=== PATIENT | male | born 1945 | race Caucasian/White ===

== ENCOUNTER 2021-01-12 19:02 | Inpatient (IN) | payer MEDICARE, BC ==
[~2021-01-12] VITALS: Ht 170.2 cm; Wt 69.4 kg
--- NOTE | 2021-01-12 19:32 | NUR ---
Called [facility] for safety precautions, patient has multiple attempts to get out of bed, bed placed in loest position, side rails up. Security arrived 1931, called zumbrota petra for 1:1.
--- NOTE | 2021-01-12 19:40 | NUR ---
steam powerplant supervisor made aware of patient condition, informed that no sitter is available at this time and security will be leaving in approx 30 minutes. Bed placed in low position, s/r up x2, call light within reach. Orientated patient of environment
--- NOTE | 2021-01-12 20:20 | NUR ---
Security at bedside, patient is noted to be calmer, listening to directions, continous re-education to not get out of bed without assistance.
[2021-01-12 20:41] LABS: BASOPHILS % (AUTO) 1.3 % (0.0-2.0); EOSINOPHILS # (AUTO) 0.1 K/uL (0.0-0.7); EOSINOPHILS % (AUTO) 2.1 % (0.0-7.0); HEMATOCRIT 42.9 % (36.7-47.1); HEMOGLOBIN 14.5 g/dL (12.5-16.3); LYMPHOCYTES # (AUTO) 1.5 K/uL (20.0-40.0); LYMPHOCYTES % (AUTO) 46.1 % (20.5-51.5); MEAN CORPUSCULAR HEMOGLOBIN 33.8 uug (23.8-33.4); MEAN CORPUSCULAR HGB CONC 34 g/dL (32.5-36.3); MEAN CORPUSCULAR VOLUME 100.1 fL (73.0-96.2); MONOCYTES # (AUTO) 0.3 K/uL (2.0-10.0); MONOCYTES % (AUTO) 8.9 % (0.0-11.0); NEUTROPHILS # (AUTO) 1.4 K/uL (1.8-8.9); NEUTROPHILS % (AUTO) 41.6 % (38.5-71.5); PLATELET COUNT (AUTO) 182 K/uL (152-348); RED BLOOD CELL COUNT(AUTO) 4.28 MIL/uL (4.06-5.63); WHITE BLOOD COUNT (AUTO) 3.3 K/uL (3.6-10.2)
[2021-01-12 20:44] LABS: POTASSIUM 4.4 mmol/L (3.5-5.1)
[2021-01-12] MEDS ORDERED: THIAMINE HCL 100 MG TABLET PO ONE (20:45)
[2021-01-12 20:50] LABS: BILIRUBIN,DIRECT 0.1 mg/dL (0.0-0.2); BILIRUBIN,TOTAL 0.2 mg/dL (0.2-1.0); TOTAL PROTEIN, SERUM 6.4 g/dL (6.4-8.2)
[2021-01-12] MEDS ORDERED: CYANOCOBALAMIN 1000 MCG/ML VIAL IM ONE (21:45)
[2021-01-12] MEDS ORDERED: CYANOCOBALAMIN 1000 MCG/ML VIAL ONE (22:14)
[2021-01-12] MEDS ORDERED: THIAMINE HCL 100 MG TABLET ONE (22:14)
--- NOTE | 2021-01-13 00:48 | NUR ---
Patient is resting comfortably in bed with eyes closed, bed in lowest position. All needs are met and attended at this time.
--- NOTE | 2021-01-13 01:11 | NUR ---
[phone], left message to call back.
--- NOTE | 2021-01-13 01:33 | NUR ---
2nd attempt to call [place] supervisor publications. no answer
--- NOTE | 2021-01-13 01:45 | NUR ---
Zakiya mendoza in [facility] - 01/13/21 at 0225 by [facility] Return[address] from [place], stable condition, following directions. Bed placed on lowest position.
--- NOTE | 2021-01-13 01:48 | NUR ---
Patient taken to CT.
--- NOTE | 2021-01-13 01:55 | NUR ---
Returned from CT, stable condition, following directions. Bed placed on lowest position.
--- NOTE | 2021-01-13 01:57 | NUR ---
Called Josy from crisis clinicial, left message to call back.
--- NOTE | 2021-01-13 02:19 | NUR ---
2nd attempt to contact Sarah from crisis team. Unable to leave voicemail
--- NOTE | 2021-01-13 02:49 | NUR ---
Third attempt to louise Sarah from crisis clinical, left message
--- NOTE | 2021-01-13 03:14 | NUR ---
Spoke with Sarah from access clinician, ETA is [phone].
--- NOTE | 2021-01-13 03:58 | NUR ---
Patient is resting comfortably in bed with eyes closed, bed in lowest position.
--- NOTE | 2021-01-13 04:30 | NUR ---
Follow up call made for reaming machine operator for plastic Sarah, unable to leave voicemail.
--- NOTE | 2021-01-13 05:03 | NUR ---
Spoke with Sarah from crisis team for update. was informed that she "will be there linda"
--- NOTE | 2021-01-13 05:45 | NUR ---
Sarah at bedside to eval. pt.
--- NOTE | 2021-01-13 06:50 | NUR ---
Patient eval. by Sarah director video, pt placed on 5150 hold for danger to self and gravely dissabled. All belongings taken and placed in a bag, gown provided. Safety precautions placed, provided safe environment provided.
--- NOTE | 2021-01-13 07:10 | NUR ---
Pt resting in bed, W/ both eyes closed, NAD noted.
[2021-01-13 07:50] VITALS: BP 162/99
--- NOTE | 2021-01-13 07:50 | NUR ---
Gps/Library Aide- Patient received from ER via wheel chair, in no signs of any distress, appeared anxious, oriented x 3. Report obtained from Melecio Mckeon .Patient foods/juice , refused claimed he does not eat breakfast. Hesitancy answering questions asked. 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 He admits to drinking , but denies to drinking too much, claimed he drinks wine when there's visitors . Patient verbalized somewhat depressed, but no plan to hurt himself. Poor memory, he does not know the year, and the day, knows the month. Oriented to unit settings. Routine admission.
[2021-01-13] MEDS ORDERED: TEMAZEPAM 7.5 MG CAPSULE PO PRN ×2 (09:30→15:00)
[2021-01-13] MEDS ORDERED: ACETAMINOPHEN 325 MG TABLET PO PRN (09:30)
[2021-01-13] MEDS ORDERED: MAGNESIUM HYDROXIDE 30 ML LIQUID UDC PO PRN (09:30)
[2021-01-13] MEDS ORDERED: LORAZEPAM 0.5 MG TABLET PO PRN (09:30)
[2021-01-13] MEDS ORDERED: MAG HYDROX/AL HYDROX/SIMETH 30 ML LIQUID UDC PO PRN (09:30)
--- NOTE | 2021-01-13 09:43 | NUR ---
Firearms Report: Sieve Grader Tender completed and submitted a DOJ firearms report for 5150 danger to self and grave disability certifications. A copy of report has been placed in patient chart.
--- NOTE | 2021-01-13 10:03 | NUR ---
EVELINE Initial Discharge Plan: Patient resides [place] [address] [place] [address] ([phone]). Patient's daughter, Ciara ([phone]) is involved in the patient's care. Patient would like to return home upon discharge. EVELINE will continue to work with patient, family, and MD to ensure a safe and proper discharge plan.
--- NOTE | 2021-01-13 10:04 | NUR ---
Brief Substance Abuse Intervention: Patient was provided with a brief substance abuse intervention for alcohol abuse and referred to the following substance abuse programs: [facility] Substance Abuse Self-helpline ([phone]); [facility] [address] [place] [address] ([phone]); [facility] [address] [facility] [address] ([phone]); [facility] ([phone]); [facility] ([phone]); [facility] ([phone]); [facility] ([phone]).
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
[2021-01-13] MEDS: LORAZEPAM 0.5 MG TABLET PO PRN ×2 (13:15→17:43)
[2021-01-13] MEDS ORDERED: ALLO300T2 PO (13:27)
[2021-01-13] MEDS ORDERED: OLME20TA13 PO (13:34)
[2021-01-13] MEDS ORDERED: ENAL5TAB21 PO (13:34)
[2021-01-13] MEDS ORDERED: ESCI10TA PO (13:34)
[2021-01-13] MEDS ORDERED: ATOR40TA PO (13:34)
[2021-01-13] MEDS ORDERED: METF-495 PO (13:34)
[2021-01-13] MEDS ORDERED: CLONIDINE HCL 0.1 MG TABLET PO PRN (15:30)
--- NOTE | 2021-01-13 15:37 | NUR ---
CALL DR. ACKERMAN'S OFFICE ([phone]), PATIENT'S PRIMARY'S DOCTOR, FOR THE LIST OF MEDICATIONS.
[2021-01-13 16:00] VITALS: BP 168/96
[2021-01-13] MEDS: GABAPENTIN 100 MG CAPSULE PO SCH ×3 (16:26→20:12)
[2021-01-13] MEDS: SERTRALINE HCL 50 MG TABLET PO SCH (16:26)
[2021-01-13] MEDS ORDERED: Medication Not On Formulary EA (Metformin Hcl (Metformin Hcl Er) 1 TAB) PO SCH (17:00)
--- NOTE | 2021-01-13 17:56 | NUR ---
Gps/Lead Electrical Engineer- Stayed up in the dinning room during dinner time.Adequate fluid intake B/P rechecked 154/79 HR 86, 02 sat 99%.
[2021-01-13 19:57] VITALS: BP 137/53
[2021-01-13] MEDS: ATORVASTATIN 40 MG TABLET PO SCH (20:12)
[2021-01-13] MEDS: METFORMIN HCL 500 MG TABLET PO SCH (20:12)
[2021-01-14 07:17] LABS: BASOPHILS % (AUTO) 0.7 % (0.0-2.0); EOSINOPHILS # (AUTO) 0.1 K/uL (0.0-0.7); EOSINOPHILS % (AUTO) 1.7 % (0.0-7.0); HEMATOCRIT 39.8 % (36.7-47.1); HEMOGLOBIN 13.6 g/dL (12.5-16.3); LYMPHOCYTES # (AUTO) 1.3 K/uL (20.0-40.0); LYMPHOCYTES % (AUTO) 34.2 % (20.5-51.5); MEAN CORPUSCULAR HEMOGLOBIN 33.7 uug (23.8-33.4); MEAN CORPUSCULAR HGB CONC 34 g/dL (32.5-36.3); MEAN CORPUSCULAR VOLUME 98.5 fL (73.0-96.2); MONOCYTES # (AUTO) 0.4 K/uL (2.0-10.0); MONOCYTES % (AUTO) 10.2 % (0.0-11.0); NEUTROPHILS % (AUTO) 53.2 % (38.5-71.5); PLATELET COUNT (AUTO) 163 K/uL (152-348); RED BLOOD CELL COUNT(AUTO) 4.04 MIL/uL (4.06-5.63); WHITE BLOOD COUNT (AUTO) 3.8 K/uL (3.6-10.2)
[2021-01-14 07:30] VITALS: BP 146/77
[2021-01-14 07:31] LABS: BILIRUBIN,TOTAL 0.6 mg/dL (0.2-1.0); CREATININE 0.9 mg/dL (0.6-1.3); MAGNESIUM 1.5 mg/dL (1.8-2.4); PHOSPHOROUS 4.2 mg/dL (2.5-4.9); POTASSIUM 3.8 mmol/L (3.5-5.1); TOTAL PROTEIN, SERUM 5.8 g/dL (6.4-8.2)
[2021-01-14 07:41] LABS: THYROID STIMULATING HORMONE 0.907 mIU/mL (0.358-3.740)
[2021-01-14] MEDS: THIAMINE HCL 100 MG TABLET PO SCH (08:36)
[2021-01-14] MEDS: FOLIC ACID 1 MG TABLET PO SCH (08:36)
[2021-01-14] MEDS: GABAPENTIN 100 MG CAPSULE PO SCH ×4 (08:36→20:26)
[2021-01-14] MEDS: MULTIVITAMINS,THERAPEUTIC TABLET PO SCH (08:36)
[2021-01-14] MEDS: ALLOPURINOL 300 MG TABLET PO SCH (08:37)
[2021-01-14] MEDS: ENALAPRIL 5 MG TABLET PO SCH (08:37)
[2021-01-14] MEDS: METFORMIN HCL 500 MG TABLET PO SCH ×2 (08:37→18:07)
[2021-01-14] MEDS: CYANOCOBALAMIN 1000 MCG/ML VIAL IM SCH (08:48)
[2021-01-14] MEDS ORDERED: MAGNESIUM OXIDE 400 MG TABLET PO ONE (09:30)
[2021-01-14] MEDS: LORAZEPAM 0.5 MG TABLET PO PRN ×2 (10:04→15:42)
--- NOTE | 2021-01-14 13:20 | NUR ---
Gps/Concrete Products Machine Operator- Patient's daughter Ciara called wants to talk to her father (PT.) but patient refused to talk to her . 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
--- NOTE | 2021-01-14 14:44 | NUR ---
SW Note: This SW was conducting group and during group pt mentioned "I am very depressed and I will kill myself if I go back home". Pt stated that he will go home and "drink". Pt stated he is feeling very depressed and was tearful. Pt stated "I would have to pretend that I am fine, so I can go back home". This SW notified Isabeli BAND AND CUFF CUTTER and she notified Doctor Catrina.
--- NOTE | 2021-01-14 15:43 | NUR ---
Gps/Chet Salcedo (son) called wants to talk to patient, and was able to talked , but patient insisting wanting to leave this pm, informed the he cant go home yet, Psychiatrist will have to see him first assess/evaluate him again . Disoriented and > confusion , constantly redirected. and reoriented. 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
--- NOTE | 2021-01-14 17:00 | NUR ---
Gps/Hand Sample Maker- Patient's daughter Ciara and son Linda , called looking Dr Amaya, , they want to talk to the Psychiatrist, informed will give her message. A friend came by to visit patient, interacting fairly well, patient noted in and out of confusion
[2021-01-14 17:17] VITALS: BP 127/59
[2021-01-14] MEDS: SERTRALINE HCL 50 MG TABLET PO SCH (18:08)
[2021-01-14] MEDS: ATORVASTATIN 40 MG TABLET PO SCH (20:25)
[2021-01-14 20:27] VITALS: BP 134/70
--- NOTE | 2021-01-15 06:22 | NUR ---
GPS: Remain confused and disoriented. no agitation noted. compliant with meds and care. slept 7.30 hrs through the night. assisted with adl's. continue plan of care.
[2021-01-15 07:30] VITALS: BP 116/80
[2021-01-15] MEDS: METFORMIN HCL 500 MG TABLET PO SCH ×2 (08:48→17:41)
[2021-01-15] MEDS: FOLIC ACID 1 MG TABLET PO SCH (08:48)
[2021-01-15] MEDS: THIAMINE HCL 100 MG TABLET PO SCH (08:49)
[2021-01-15] MEDS: GABAPENTIN 100 MG CAPSULE PO SCH ×4 (08:49→20:26)
[2021-01-15] MEDS: ALLOPURINOL 300 MG TABLET PO SCH (08:49)
[2021-01-15] MEDS: ENALAPRIL 5 MG TABLET PO SCH (08:50)
[2021-01-15] MEDS: MULTIVITAMINS,THERAPEUTIC TABLET PO SCH (08:50)
[2021-01-15] MEDS: CYANOCOBALAMIN 1000 MCG/ML VIAL IM SCH (08:51)
--- NOTE | 2021-01-15 10:00 | NUR ---
Gps/Pasteuriser Operator- Informed patient his son jackie will be in at 1500 to visit, stated " looking forward to seeing him"
[2021-01-15] MEDS: LORAZEPAM 0.5 MG TABLET PO PRN (12:36)
--- NOTE | 2021-01-15 12:47 | NUR ---
Gps/Mobile Sales Consultant- Showered self ind. after set up, assisted with shaving self by TRACTOR CRANE ENGINEER. Stayed in the dinning room during his lunch, appetite appeared to be improving . Encouraged continued verbalizations of his feelings and needs
[2021-01-15 16:00] VITALS: BP 153/75
--- NOTE | 2021-01-15 16:30 | NUR ---
Gps/Physical Anthropologist- Patient son came in to visit, brought magazines, and soup, placed in the refrigerator, offered to have it at dinner time, patient refused, will take maybe tomorrow per pt.
[2021-01-15] MEDS: SERTRALINE HCL 50 MG TABLET PO SCH (17:41)
[2021-01-15 20:00] VITALS: BP 142/74
[2021-01-15] MEDS: ATORVASTATIN 40 MG TABLET PO SCH (20:26)
[2021-01-16 08:27] VITALS: BP 114/75
[2021-01-16] MEDS: GABAPENTIN 100 MG CAPSULE PO SCH ×4 (09:00→20:15)
[2021-01-16] MEDS: METFORMIN HCL 500 MG TABLET PO SCH ×2 (09:01→16:56)
[2021-01-16] MEDS: MULTIVITAMINS,THERAPEUTIC TABLET PO SCH (09:01)
[2021-01-16] MEDS: THIAMINE HCL 100 MG TABLET PO SCH (09:01)
[2021-01-16] MEDS: CYANOCOBALAMIN 1000 MCG/ML VIAL IM SCH (09:01)
[2021-01-16] MEDS: FOLIC ACID 1 MG TABLET PO SCH (09:01)
[2021-01-16] MEDS: ENALAPRIL 5 MG TABLET PO SCH (09:05)
[2021-01-16] MEDS: ALLOPURINOL 300 MG TABLET PO SCH (09:05)
--- NOTE | 2021-01-16 10:00 | NUR ---
Gps/Mechanic'S Assistant- Offered soup from home brought by son yesterday, agreed to taste, was able to finished 1 container. Had been quiet, redirectable, interacts when engaged , > orientation but with occ. forgetfulness noted.
[2021-01-16] MEDS: LORAZEPAM 0.5 MG TABLET PO PRN (13:11)
--- NOTE | 2021-01-16 14:57 | NUR ---
Gps/Collar Tailor-Patient kept coming to Nurses station requesting and making suggestions the need to call his Psychiatrist , and needed to discharge him toady, claimed it is getting too late.Patient claimed there is no reason for him to stay here . Forgetfulness, noted , discussed with patient couple of time this am regarding his hold, and Matias(son) spoked to him 2 x this morning, patient telling his son he is going home today , informed there is no order yet.
[2021-01-16] MEDS: SERTRALINE HCL 50 MG TABLET PO SCH (16:56)
[2021-01-16 20:15] VITALS: BP 118/72
[2021-01-16] MEDS: ATORVASTATIN 40 MG TABLET PO SCH (20:15)
--- NOTE | 2021-01-16 21:05 | NUR ---
Received pt resting in bed, frequently ambulates in the hallway. Noted to be forgetful. No acute distress noted. Denies pain/ discomfort. Due meds given as ordered. Safety measures maintained. Will continue to monitor.
[2021-01-17 07:30] VITALS: BP 150/75
[2021-01-17] MEDS: CYANOCOBALAMIN 1000 MCG/ML VIAL IM SCH (09:03)
[2021-01-17] MEDS: MULTIVITAMINS,THERAPEUTIC TABLET PO SCH (09:04)
[2021-01-17] MEDS: ALLOPURINOL 300 MG TABLET PO SCH (09:04)
[2021-01-17] MEDS: FOLIC ACID 1 MG TABLET PO SCH (09:04)
[2021-01-17] MEDS: METFORMIN HCL 500 MG TABLET PO SCH ×2 (09:04→17:14)
[2021-01-17] MEDS: THIAMINE HCL 100 MG TABLET PO SCH (09:04)
[2021-01-17] MEDS: GABAPENTIN 100 MG CAPSULE PO SCH ×4 (09:04→20:36)
[2021-01-17] MEDS: ENALAPRIL 5 MG TABLET PO SCH (09:05)
[2021-01-17] MEDS: risperiDONE 0.25 MG TABLET PO SCH ×2 (11:34→17:14)
--- NOTE | 2021-01-17 11:45 | NUR ---
EVELINE Family Contact: SW spoke with patient's daughter, Ciara ([phone]) and son, Cheyenne ([phone]) and discussed treatment and discharge plan. Cheyenne stated that he is the Patient's DPOA and this SW requested the documents which he stated he will bring today. SW informed both Ciara and Cheyenne of the doctor's recommendation for the patient to go to a Senior Care Facility for continued treatment after the hospital. Cheyenne expressed a lot of denial regarding the patient's suicidal ideation and increased confusion and psychosis. SW educated Cheyenne and provided insight regarding the patient's current condition and presenting problems. Ciara is accepting and stated that she has seen the patient "passed out on the floor many times and has videos of him expressing suicidal thoughts". After this foster care social worker explained safe discharge planning for the patient, both Ciara and Cheyenne are agreeable for Senior Care placement for the patient.
--- NOTE | 2021-01-17 12:49 | NUR ---
EVELINE Family Contact: SW received and review the DPOA documents from patient's son, Cheyenne ([phone]). DPOA is for financial decisions only. A copy has been placed in the patient's chart.
[2021-01-17 15:05] VITALS: BP 129/73
[2021-01-17] MEDS: SERTRALINE HCL 50 MG TABLET PO SCH (17:14)
--- NOTE | 2021-01-17 17:52 | NUR ---
patient is AAO X4 in his room spoke with a staff at bedside ,with flat affect denies any pain or discomfort,denies any SI/HI.compliant with all medication.
[2021-01-17 20:25] VITALS: BP 148/75
[2021-01-17] MEDS: ATORVASTATIN 40 MG TABLET PO SCH (20:36)
[2021-01-18 07:30] VITALS: BP 142/66
[2021-01-18] MEDS: THIAMINE HCL 100 MG TABLET PO SCH (08:55)
[2021-01-18] MEDS: FOLIC ACID 1 MG TABLET PO SCH (08:55)
[2021-01-18] MEDS: GABAPENTIN 100 MG CAPSULE PO SCH ×2 (08:55→12:27)
[2021-01-18] MEDS: METFORMIN HCL 500 MG TABLET PO SCH (08:55)
[2021-01-18 08:56] VITALS: BP 144/63
[2021-01-18] MEDS: ENALAPRIL 5 MG TABLET PO SCH (08:56)
[2021-01-18] MEDS: MULTIVITAMINS,THERAPEUTIC TABLET PO SCH (08:56)
[2021-01-18] MEDS: ALLOPURINOL 300 MG TABLET PO SCH (08:56)
[2021-01-18] MEDS: CYANOCOBALAMIN 1000 MCG/ML VIAL IM SCH (08:57)
[2021-01-18] MEDS ORDERED: QUETIAPINE FUMARATE 25 MG TABLET PO SCH ×2 (10:00→21:00)
--- NOTE | 2021-01-18 10:04 | NUR ---
CALL RECEIVED FROM DR LAWSON STATED SPOKE WITH PATIENTS SON ON THE PHONE AND FAMILY WAS INSISTING ON DISCHARGE BUT NOT SURE WILL SEE IF PATIENT CAN BE DISCHARGED TODAY.NO NEW ORDERS AT THIS TIME.
--- NOTE | 2021-01-18 10:05 | NUR ---
EVELINE PC Hearing: Patient had 5250 probable cause hearing today and is released by the court to be discharged home. Patient's son, Cheyenne ([phone]) was present during the court hearing.
--- NOTE | 2021-01-18 11:18 | NUR ---
SW Discharge Note: Patient is released by the court today and will be discharged with his son Cheyenne ([phone]) who will be picking up the patient at 2pm and taking him home [address] [place] [address]. Patient is alert and oriented x3 and is aware and agreeable with discharge plan. Patient denies suicidal or homicidal ideation. Patient presents with depressed mood and flat affect. Patient is referred to Dr. Larissa Brink for psychiatry follow ups [address], [place] [address] ([phone]). Pts son Cheyenne ([phone]) stated he will follow up for all aftercare appointments for the patient. Cheyenne stated he hired a 24/hr mixed livestock farmer for the patient through a staffing agency, [employer]. Patient was provided with a brief substance abuse intervention for alcohol abuse and referred to the following substance abuse programs: [facility] Substance Abuse Self-helpline ([phone]); [facility] [address] [place] [address] ([phone]); [address] [address] ([phone]); [facility] ([phone]); [facility] ([phone]); [facility] ([phone]); [facility] ([phone]), and [facility] (025-755-6912).
--- NOTE | 2021-01-18 11:21 | NUR ---
EVELINE Family Contact: EVELINE spoke with patient's daughter, Ciara ([phone]) and informed her of the patient being released by the court. Ciara is understanding and is aware that should something happen patient can always return to ER of any hospital.
--- NOTE | 2021-01-18 11:58 | NUR ---
DISCHARGE PLANNING PATIENT WILL BE DISCHARGED THIS AFTERNOON WILL BE PICKED UP BY HIS SON ANABELLE.
--- NOTE | 2021-01-18 13:58 | NUR ---
DR LAWSON CALLED IN PATIENT DISCHARGE MEDICATIONS TO PATIENTS OWN PHARMACY.
--- NOTE | 2021-01-18 14:15 | NUR ---
PATIENT DISCHARGED PICKED UP BY HIS SON ANABELLE IN SATISFACTORY CONDITION WITH ALL DISCHARGE INSTRUCTIONS AND ALL HIS PERSONAL BELONGINGS INCLUDING VALUABLES FROM THE [employer] PATIENT DENIES SUICIDAL AND HOMICIDAL IDEATION AT THIS TIME.PER THE CNC SET UP OPERATOR PATIENTS PSYCH MEDICATIONS WAS CALLED IN TO PATIENTS OWN PHARMACY AND SON CONFIRMED THAT HE SPOKE WITH DR LAWSON AND CONFIRMED HIS PHARMACY SON EXPRESSED UNDERSTANDING.
[2021-01-18] MEDS ORDERED: SERTRALINE HCL 50 MG TABLET PO SCH ×2 (17:00)
[2021-01-18] MEDS ORDERED: GABAPENTIN 100 MG CAPSULE PO SCH (21:00)
[2021-01-18] MEDS ORDERED: ATORVASTATIN 20 MG TABLET PO SCH (21:00)
== END 2021-01-18 14:15 | disposition home or self-care (01) | DRG 885 ==
LOC: ER 19:04 → GPS 01-13 07:59
PROVIDERS: ADMIT Psychiatry & Neurology Psychosomatic Medicine; ATTEND Internal Medicine
DX: F33.3 Major depressive disorder, recurrent, severe with psychotic symptoms (principal); F10.229 Alcohol dependence with intoxication, unspecified; F10.239 Alcohol dependence with withdrawal, unspecified; Y90.8 Blood alcohol level of 240 mg/100 ml or more; E78.5 Hyperlipidemia, unspecified; E11.9 Type 2 diabetes mellitus without complications; I10 Essential (primary) hypertension; G31.9 Degenerative disease of nervous system, unspecified; M19.90 Unspecified osteoarthritis, unspecified site; M10.9 Gout, unspecified; Z20.822 Contact with and (suspected) exposure to COVID-19; E53.8 Deficiency of other specified B group vitamins; F03.90 Unspecified dementia, unspecified severity, without behavioral disturbance, psychotic disturbance, mood disturbance, and anxiety; Z79.84 Long term (current) use of oral hypoglycemic drugs
CPT/HCPCS: 36415; 70450; 82747; 83735; 84100; 84443; 85014; 85025; A4663; G0480; J3420